=== PATIENT | female | born 1990 | race Caucasian/White ===

== ENCOUNTER → 2017-06-21 | Outpatient (REF) | payer OTHER ==
[2017-06-21 13:52] LABS: HEMATOCRIT 39.1 % (36.0-47.0); HEMOGLOBIN 13.7 g/dl (12.0-16.0); MEAN CORPUSCULAR HEMOGLOBIN 29.5 pg (27.0-33.0); MEAN CORPUSCULAR VOLUME 84.3 fl (80.0-96.0); PLATELET COUNT, AUTOMATED 293 10^3/uL (150-450); RED BLOOD COUNT 4.64 10^6/uL (4.00-5.40); RED CELL DISTRIBUTION WIDTH 13.2 % (11.5-14.5); WHITE BLOOD COUNT 8.4 10^3/uL (4.0-10.0)
[2017-06-21 14:40] LABS: RUBELLA IgG QUALITATIVE IMMUNE (IMMUNE)
[2017-06-21 14:41] LABS: HBsAg Prenatal NEGATIVE (NEGATIVE)
[2017-06-21 15:09] LABS: HEPATITIS C VIRUS ABY INDEX 0.1 INDEX (<0.8)
[2017-06-21 15:09] LABS: HIV 1&2 SCREEN CENTAUR NEGATIVE (NEGATIVE)
[2017-06-21 21:01] LABS: HCG, SERUM QUANTITATIVE 149166 MIU/ML
== END ==
LOC: M LAB REF 13:15
DX: O36.80X0 Pregnancy with inconclusive fetal viability, not applicable or unspecified (principal)

== ENCOUNTER → 2017-06-28 | Outpatient (REF) | payer OTHER | LOC: M LAB REF 13:30 | DX: J02.9 Acute pharyngitis, unspecified (principal) ==

== ENCOUNTER → 2017-10-29 | Outpatient (CLI) | payer OTHER ==
[2017-10-29 12:45] LABS: HEMATOCRIT 33.2 % (36.0-47.0); HEMOGLOBIN 11.4 g/dl (12.0-15.5); MEAN CORPUSCULAR HEMOGLOBIN 30.6 pg (27.0-33.0); MEAN CORPUSCULAR HGB CONC 34.3 g/dl (32.0-36.5); PLATELET COUNT, AUTOMATED 178 10^3/uL (150-450); RED BLOOD COUNT 3.73 10^6/uL (4.00-5.40); WHITE BLOOD COUNT 7.3 10^3/uL (4.0-10.0)
[2017-10-30 10:30] LABS: GLUCOSE CHALLENGE TEST 1 HOUR 83 MG/DL (LESS THAN 140)
== END ==
LOC: M WUC 08:39
DX: Z34.82 Encounter for supervision of other normal pregnancy, second trimester (principal); Z36.89 Encounter for other specified antenatal screening
CPT/HCPCS: 82950

== ENCOUNTER → 2017-12-30 | Outpatient (REF) | payer OTHER | LOC: M LAB REF 17:24 | DX: Z34.83 Encounter for supervision of other normal pregnancy, third trimester (principal); Z3A.00 Weeks of gestation of pregnancy not specified ==

== ENCOUNTER 2018-01-17 02:57 | Inpatient (IN) | payer OTHER ==
[2018-01-17 04:12] LABS: HEMATOCRIT 33.8 % (36.0-47.0); HEMOGLOBIN 11.3 g/dl (12.0-15.5); MEAN CORPUSCULAR HEMOGLOBIN 27.7 pg (27.0-33.0); MEAN CORPUSCULAR HGB CONC 33.4 g/dl (32.0-36.5); MEAN CORPUSCULAR VOLUME 82.8 fl (80.0-96.0); PLATELET COUNT, AUTOMATED 183 10^3/uL (150-450); RED BLOOD COUNT 4.08 10^6/uL (4.00-5.40); RED CELL DISTRIBUTION WIDTH 12.1 % (11.5-14.5); WHITE BLOOD COUNT 8.6 10^3/uL (4.0-10.0)
[2018-01-17] MEDS ORDERED: OXYTOCIN 30 UNITS IN 0.9% NaCl 500ML IV BAG (J2590) As Ordered (08:02)
[2018-01-17] MEDS: LACTATED RINGER'S 1000 ML IV (08:16)
[2018-01-17] MEDS: OXYTOCIN DRIP 30 UNITS in APPROPRIATE DILUENT 1 EA IV ×2 (08:16→13:08)
[2018-01-17] MEDS: PRENATAL VITAMINS CHEWABLE TABLET PO (09:00)
[2018-01-17] MEDS ORDERED: FENTANYL 2MCG/ML ROPIVACAINE 0.2% IN 0.9% NACL 200ML IVBAG As Ordered (09:54)
[2018-01-17] MEDS: FENTANYL/ROPIVACAINE/NACL BAG 200 ML EPIDURAL (10:37)
[2018-01-17] MEDS: LR 1,000 ML IV (10:58)
[2018-01-17] MEDS ORDERED: NALOXONE INJ 0.4 MG/1 ML VIAL (J2310) IV (11:00)
[2018-01-17] MEDS ORDERED: diphenhydrAMINE INJ 50MG/ML VIAL (J1200) IV (11:00)
[2018-01-17] MEDS ORDERED: EPIDURAL COMMENT XX (11:00)
[2018-01-17] MEDS ORDERED: LACTATED RINGER'S 1000 ML IV (11:00)
[2018-01-17] MEDS ORDERED: ONDANSETRON 4MG/2ML VIAL (J2405) IV (11:00)
[2018-01-17] MEDS ORDERED: ePHEDrine SULFATE 25 MG/5 ML(5MG/ML) SYRINGE IV (11:00)
[2018-01-17] MEDS ORDERED: REFRIGERATOR IV KEYS XX (11:00)
[2018-01-17] MEDS ORDERED: EPIDURAL/PCA KEYS XX (11:00)
[2018-01-17] MEDS ORDERED: METHYLERGONOVINE MALEATE 0.2 MG TAB PO (13:15)
[2018-01-17] MEDS ORDERED: DOCUSATE SODIUM 100 MG CAP PO (13:15)
[2018-01-17] MEDS ORDERED: RHOGAM 300 MCG (1500 IU) INJ (J2790) IM (13:15)
[2018-01-17] MEDS ORDERED: MEASLES,MUMPS,RUBELLA VACCINE INJ (MMR-II) (90707) SC (13:15)
[2018-01-17] MEDS ORDERED: DIBUCAINE 1% OINTMENT 30GM TOP (13:15)
[2018-01-17 13:18] LABS: CORD GAS HCO3 V 23.9 MEQ/L; CORD GAS O2 SAT V 65.9 %; CORD GAS PCO2 V 44.9 mmHg; CORD GAS PH V 7.344 UNITS; CORD GAS PO2 V 30.5 mmHg; CORD GAS SBC V 22.2 MEQ/L; CORD GAS TCO2 V 25.3 MEQ/L
[2018-01-17 13:20] LABS: CORD GAS ABE A -5.1; CORD GAS HCO3 A 18.6 MEQ/L; CORD GAS O2 SAT A 83.7 %; CORD GAS PCO2 A 31.1 mmHg; CORD GAS PH A 7.394 UNITS; CORD GAS PO2 A 38.4 mmHg; CORD GAS TCO2 A 19.5 MEQ/L
[2018-01-17] MEDS: ACETAMINOPHEN 500 MG TAB PO (22:17)
[2018-01-18] MEDS: ACETAMINOPHEN 500 MG TAB PO ×2 (07:24→14:48)
[2018-01-18] MEDS: PRENATAL VITAMINS CHEWABLE TABLET PO (09:00)
[2018-01-18] MEDS: INFLUENZA QUADRIVALENT PF VACCINE 0.5ML SYRINGE (90686) IM (09:29)
== END 2018-01-18 19:30 | disposition home or self-care (01) | DRG 807 ==
LOC: M LDO 02:57 → M LDI 03:32 → M OBS 15:50
PROVIDERS: Obstetrics & Gynecology
PROC: 10E0XZZ Delivery of Products of Conception, External Approach (ICD-10-PCS; principal; 2018-01-17)
DX: O69.82X0 Labor and delivery complicated by other cord entanglement, without compression, not applicable or unspecified (principal); Z37.0 Single live birth; Z3A.39 39 weeks gestation of pregnancy

== ENCOUNTER → 2024-05-04 | Outpatient (REF) | payer OTHER ==
[~2024-05-04] MED LIST: MOTR200T44 PO; PRENTAB31 PO; TYLE500T78 PO
== END ==
LOC: M LAB REF 09:42
PROVIDERS: ATTEND Student in an Organized Health Care Education/Training Program
DX: R06.02 Shortness of breath (principal)

== ENCOUNTER → 2024-05-05 | Outpatient (CLI) | payer OTHER | LOC: M WUC 12:20 | PROVIDERS: ATTEND Student in an Organized Health Care Education/Training Program | DX: R06.02 Shortness of breath (principal); R00.0 Tachycardia, unspecified ==